=== PATIENT | male | born 1950 | race Caucasian/White ===

== ENCOUNTER 2017-08-06 09:09 | Emergency (ER) | payer MEDICARE, OTHER ==
[2017-08-06] MEDS ORDERED: MORPHINE SULFATE 4 MG INJ IV ONE ×2 (09:23→14:09)
[2017-08-06] MEDS ORDERED: Ativan 1 MG PO ONE (09:24)
--- NOTE | 2017-08-06 09:29 | ERPHSYRPT ---
- History of Present Illness Time Seen by Provider: 08/06/17 09:26 Source: patient Patient Subjective Stated Complaint: pain to lower back for a week after running equipment, he states is spasms off and on Triage Nursing Assessment: pt walked in. gaurding back, alertmresp easy, skin w/ d/p Physician History: mild to mod low and mid back pain positional ache for one week after chaining a tire, o/w no injury, no fever, no abdominal pain, ambulatory Allergies/Adverse Reactions: diclofenac [From Voltaren] Allergy (Verified 08/06/17 09:21) Hx Tetanus, Diphtheria Vaccination/Date Given: Yes Hx Influenza Vaccination/Date Given: No Hx Pneumococcal Vaccination/Date Given: No Immunizations Up to Date: Yes - Review of Systems Constitutional: No Fever Eyes: No Symptoms Ears, Nose, & Throat: No Symptoms Respiratory: No Symptoms Cardiac: No Symptoms Abdominal/Gastrointestinal: No Symptoms Genitourinary Symptoms: No Symptoms Musculoskeletal: Back Pain Skin: No Symptoms Neurological: No Symptoms - Past Medical History Pertinent Past Medical History: Yes Neurological History: No Pertinent History ENT History: No Pertinent History Cardiac History: No Pertinent History Respiratory History: Sleep Apnea Endocrine Medical History: No Pertinent History Musculoskeletal History: No Pertinent History GI Medical History: No Pertinent History History: No Pertinent History Psycho-Social History: No Pertinent History Male Reproductive Disorders: No Pertinent History - Past Surgical History Past Surgical History: Yes Neuro Surgical History: No Pertinent History Cardiac: No Pertinent History Respiratory: No Pertinent History Gastrointestinal: Hernia Repair Genitourinary: No Pertinent History Musculoskeletal: Orthopedic Surgery Male Surgical History: No Pertinent History Other Surgical History: LUNG SURG,CYST ON WRIST REMOVED, - Social History Smoking Status: Never smoker Exposure to second hand smoke: No Drug Use: none Patient Lives Alone: No - Nursing Vital Signs Nursing Vital Signs: Initial Vital Signs Temperature 97.1 F 08/06/17 09:14 Pulse Rate 78 08/06/17 09:14 Respiratory Rate 18 08/06/17 09:14 Blood Pressure 157/113 08/06/17 09:14 O2 Sat by Pulse Oximetry 100 08/06/17 09:14 Pain Scale Pain Intensity [Back] 10 Pain Intensity 0 - Physical Exam General Appearance: no apparent distress Eye Exam: eyes nml inspection Ears, Nose, Throat Exam: moist mucous membranes Neck Exam: normal inspection, non-tender, supple, full range of motion Respiratory Exam: normal breath sounds Cardiovascular Exam: regular rate/rhythm Gastrointestinal Exam: soft, No tenderness, No pulsatile mass, No rebound Back Exam: normal inspection, normal range of motion, other (tender paraspinal lumbar and thoracic), No vertebral tenderness Extremity Exam: normal inspection, pelvis stable, other (sen and pulses intact) Neurologic Exam: alert, oriented x 3, cooperative Skin Exam: normal color, warm, dry SpO2: 78 (O2sat RA 95%) Oxygen Delivery: Room Air - Course Nursing assessment & vital signs reviewed: Yes EKG Interpreted by Me: Other (nsr 55 no stemi) - CT Exams Lumbar Spine CT Interpretation: Discussed w/radiologist, Other (degen dis no fx) Abdomen/Pelvis CT Interpretation: Discussed w/radiologist, Other (no AAA) Ordered Tests: Active Orders 24 hr Category Date Time Status EKG-ER Only STAT Care 08/06/17 09:25 Active IV Insertion STAT Care 08/06/17 09:23 Active ABDOMEN AND PELVIS W/0 CONTRAS [CT] Stat Exams 08/06/17 12:39 Taken LUMBAR SPINE W/O [CT] Stat Exams 08/06/17 09:23 Taken THORACIC SPINE W/O CONTRAST [CT] Stat Exams 08/06/17 09:23 Taken CBC W DIFF Stat Lab 08/06/17 09:23 Completed CMP Stat Lab 08/06/17 09:45 Completed D-DIMER QUANTITATION Stat Lab 08/06/17 09:45 Completed TROPONIN Q3H Lab 08/06/17 09:45 Completed TROPONIN Q3H Lab 08/06/17 12:30 Completed TROPONIN Q3H Lab 08/06/17 15:30 Ordered TROPONIN Q3H Lab 08/06/17 18:30 Ordered TROPONIN Q3H Lab 08/06/17 21:30 Ordered UA W/RFX UR CULTURE Stat Lab 08/06/17 09:45 Completed Medication Summary Discontinued Medications Generic Name Dose Route Start Last Admin Trade Name Freq PRN Reason Stop Dose Admin Lorazepam 1 mg 08/06/17 09:24 08/06/17 09:31 Ativan 1 Mg PO 08/06/17 09:25 1 mg STAT ONE Administration Lorazepam Confirm 08/06/17 09:30 Ativan 1 Mg Administered 08/06/17 09:31 Dose 1 mg .ROUTE .STK-MED ONE Morphine Sulfate 4 mg 08/06/17 09:23 08/06/17 09:30 Morphine Sulfate 4 Mg Inj IV 08/06/17 09:24 4 mg STAT ONE Administration Morphine Sulfate Confirm 08/06/17 09:30 Morphine Sulfate 4 Mg Inj Administered 08/06/17 09:31 Dose 4 mg .ROUTE .STK-MED ONE Morphine Sulfate 4 mg 08/06/17 14:09 08/06/17 14:14 Morphine Sulfate 4 Mg Inj IV 08/06/17 14:10 4 mg STAT ONE Administration Morphine Sulfate Confirm 08/06/17 14:12 Morphine Sulfate 4 Mg Inj Administered 08/06/17 14:13 Dose 4 mg .ROUTE .STK-MED ONE Lab/Rad Data: Laboratory Result Diagrams 08/06/17 09:23 08/06/17 09:45 Laboratory Results 08/06/17 08/06/17 08/06/17 Range/Units 12:30 09:45 09:45 WBC (4.0-10.5) K/mm3 RBC (4.1-5.6) M/mm3 Hgb (12.5-18.0) gm/dl Hct (42-50) % MCV (78-100) fl MCH (26-32) pg MCHC (32-36) g/dl RDW (11.5-14.0) % Plt Count (150-450) K/mm3 MPV (6-9.5) fl Gran % (36.0-66.0) % Eos # (Auto) (0-0.5) Absolute Lymphs (auto) (1.0-4.6) Absolute Monos (auto) (0.0-1.3) Lymphocytes % (24.0-44.0) % Monocytes % (0.0-12.0) % Eosinophils % (0.00-5.0) % Basophils % (0.0-0.4) % Absolute Granulocytes (1.4-6.9) Basophils # (0-0.4) D-Dimer (215-500) ng/mL Sodium (137-145) mmol/L Potassium (3.5-5.1) mmol/L Chloride (98-107) mmol/L Carbon Dioxide (22-30) mmol/L Anion Gap (5-15) MEQ/L BUN (9-20) mg/dL Creatinine (0.66-1.25) mg/dL Estimated GFR ML/MIN Glucose (74-106) mg/dL Calcium (8.4-10.2) mg/dL Total Bilirubin (0.2-1.3) mg/dL AST (17-59) U/L ALT (0-50) U/L Alkaline Phosphatase (38-126) U/L Troponin I < 0.012 < 0.012 (0.000-0.034) ng/mL Serum Total Protein (6.3-8.2) g/dL Albumin (3.5-5.0) g/dL Ur Collection Type CLEAN CATCH Urine Color YELLOW (YELLOW) Urine Appearance CLEAR (CLEAR) Urine pH 5.0 (5-6) Ur Specific Eastern 1.015 (1.005-1.025) Urine Protein NEGATIVE (Negative) Urine Ketones NEGATIVE (NEGATIVE) Urine Blood NEGATIVE (0-5) Semaj/ul Urine Nitrite NEGATIVE (NEGATIVE) Urine Bilirubin NEGATIVE (NEGATIVE) Urine Urobilinogen NORMAL (0-1) mg/dL Ur Leukocyte Esterase NEGATIVE (NEGATIVE) Urine Culture Reflexed NO (NO) Urine Glucose 100 (NEGATIVE) mg/dL Specimen Received 08-06-17 0930 08/06/17 08/06/17 08/06/17 Range/Units 09:45 09:45 09:23 WBC 6.7 (4.0-10.5) K/mm3 RBC 5.01 (4.1-5.6) M/mm3 Hgb 14.2 (12.5-18.0) gm/dl Hct 43.1 (42-50) % MCV 86.0 (78-100) fl MCH 28.3 (26-32) pg MCHC 32.9 (32-36) g/dl RDW 14.7 H (11.5-14.0) % Plt Count 186 (150-450) K/mm3 MPV 10.4 H (6-9.5) fl Gran % 62.8 (36.0-66.0) % Eos # (Auto) 0.37 (0-0.5) Absolute Lymphs (auto) 1.51 (1.0-4.6) Absolute Monos (auto) 0.55 (0.0-1.3) Lymphocytes % 22.7 L (24.0-44.0) % Monocytes % 8.3 (0.0-12.0) % Eosinophils % 5.6 H (0.00-5.0) % Basophils % 0.6 (0.0-0.4) % Absolute Granulocytes 4.19 (1.4-6.9) Basophils # 0.04 (0-0.4) D-Dimer 426 (215-500) ng/mL Sodium 142 (137-145) mmol/L Potassium 4.6 (3.5-5.1) mmol/L Chloride 105 (98-107) mmol/L Carbon Dioxide 27 (22-30) mmol/L Anion Gap 14.5 (5-15) MEQ/L BUN 23 H (9-20) mg/dL Creatinine 0.99 (0.66-1.25) mg/dL Estimated GFR > 60.0 ML/MIN Glucose 120 H (74-106) mg/dL Calcium 9.9 (8.4-10.2) mg/dL Total Bilirubin 0.30 (0.2-1.3) mg/dL AST 25 (17-59) U/L ALT 23 (0-50) U/L Alkaline Phosphatase 84 (38-126) U/L Troponin I (0.000-0.034) ng/mL Serum Total Protein 9.0 H (6.3-8.2) g/dL Albumin 4.4 (3.5-5.0) g/dL Ur Collection Type Urine Color (YELLOW) Urine Appearance (CLEAR) Urine pH (5-6) Ur Specific Eastern (1.005-1.025) Urine Protein (Negative) Urine Ketones (NEGATIVE) Urine Blood (0-5) Semaj/ul Urine Nitrite (NEGATIVE) Urine Bilirubin (NEGATIVE) Urine Urobilinogen (0-1) mg/dL Ur Leukocyte Esterase (NEGATIVE) Urine Culture Reflexed (NO) Urine Glucose (NEGATIVE) mg/dL Specimen Received - Progress Progress: improved Counseled pt/family regarding: lab results, diagnosis, need for follow-up, rad results - Departure Time of Disposition: 14:53 Departure Disposition: Home Clinical Impression: Low back strain Qualifiers: Encounter type: initial encounter Qualified Code(s): S39.012A - Strain of muscle, fascia and tendon of lower back, initial encounter Hypertension Qualifiers: Hypertension type: essential hypertension Qualified Code(s): I10 - Essential ( primary) hypertension Condition: Stable Critical Care Time: No Referrals: CLAIRE HESS [Primary Care Provider] - Instructions: Low Back Pain (DC) Additional Instructions: ativan and norco and morphine warnings given, ice, norvasc, medrol, return if worse, see your doctor Prescriptions: Amlodipine Besylate 5 mg [Norvasc 5 mg] 5 mg PO DAILY 10 Days #10 tablet Hydrocodone/APAP 5/325 [Iroquois 5/325 mg] 1 each PO Q4-6HPRN PRN #10 tablet MDD 4 PRN Reason: Moderate Pain Lorazepam 1 mg [Ativan 1 MG] 1 mg PO STAT #10 tablet Methylprednisolone Packet [Medrol Dosepack] 0 mg PO UD #1 packet
[2017-08-06] MEDS ORDERED: Ativan 1 MG ONE (09:30)
[2017-08-06] MEDS ORDERED: MORPHINE SULFATE 4 MG INJ ONE ×2 (09:30→14:12)
[2017-08-06 09:46] LABS: BASOPHIL % 0.6 % (0.0-0.4); Basophil (Absolute #) 0.04 (0-0.4); Eosinophil % 5.6 % (0.00-5.0); Eosinophil (Absolute #) 0.37 (0-0.5); Granulocyte Absolute (ANC) 4.19 (1.4-6.9); Granulocytes % 62.8 % (36.0-66.0); Hematocrit 43.1 % (42-50); Hemoglobin 14.2 gm/dl (12.5-18.0); Lymphocyte (Absolute #) 1.51 (1.0-4.6); Lymphocytes % 22.7 % (24.0-44.0); Mean Corpuscular Hemoglobin 28.3 pg (26-32); Mean Corpuscular Hgb Concent. 32.9 g/dl (32-36); Mean Platelet Volume 10.4 fl (6-9.5); Monocyte (Absolute #) 0.55 (0.0-1.3); Monocytes % 8.3 % (0.0-12.0); Platelet Count 186 K/mm3 (150-450); Red Blood Count 5.01 M/mm3 (4.1-5.6); Red Cell Distribution Width 14.7 % (11.5-14.0); White Blood Count 6.7 K/mm3 (4.0-10.5)
[2017-08-06 10:04] LABS: ALBUMIN 4.4 g/dL (3.5-5.0); ALKALINE PHOSPHATASE 84 U/L (38-126); ANION GAP 14.5 MEQ/L (5-15); BLOOD UREA NITROGEN 23 mg/dL (9-20); CHLORIDE 105 mmol/L (98-107); Calcium 9.9 mg/dL (8.4-10.2); Carbon Dioxide 27 mmol/L (22-30); Creatinine 1 0.99 mg/dL (0.66-1.25); Glucose 120 mg/dL (74-106); Potassium 4.6 mmol/L (3.5-5.1); SGOT/AST 25 U/L (17-59); SGPT/ALT 23 U/L (0-50); SODIUM 142 mmol/L (137-145)
[2017-08-06 10:12] LABS: Appearance CLEAR (CLEAR); Bilirubin NEGATIVE (NEGATIVE); Blood NEGATIVE Ery/ul (0-5); Glucose 100 mg/dL (NEGATIVE); Ketones NEGATIVE (NEGATIVE); Leukocyte Esterase NEGATIVE (NEGATIVE); Nitrite NEGATIVE (NEGATIVE); Protein,Urine Dip NEGATIVE (Negative); Specific Gravity 1.015 (1.005-1.025); Urobilinogen NORMAL mg/dL (0-1)
[2017-08-06 15:13] VITALS: BP 140/79; PULSE 60; O2SAT 97
--- NOTE | 2017-08-06 21:15 | XRAY ---
Indication: AAA. Multiple contiguous axial images obtained through the abdomen and pelvis without contrast as ordered. Comparison: None Lung bases demonstrates mild bilateral atelectasis/scarring. No infiltrate or effusion. Heart is not enlarged. Minimal aortoiliac calcifications without AAA. Noncontrasted stomach and bowel loops appear nonobstructed. There is mild diffuse scattered colonic fecal debris throughout. Normal appendix. Scattered descending/sigmoid diverticulosis. 7 mm gallstone. Scattered hepatic/splenic calcified granulomas. Spleen is enlarged measuring 14.7 cm in greatest axial dimension. 2.2 cm left upper pole exophytic cyst. Enlarged prostate gland impresses on the base of the bladder. Remaining pancreas, adrenal glands, right kidney, both ureters, and bladder appear unremarkable for noncontrast exam. Osseous structures intact with moderate multilevel degenerative spondylosis. Impression: 1. Minimal aortoiliac calcifications. Negative AAA. 2. Fecal stasis without obstruction. Colonic diverticulosis without diverticulitis. 3. Subcentimeter gallstone. 4. Left renal cyst. 5. Splenomegaly, enlarged prostate gland, and evidence for old granulomatous disease. Comment: Preliminary interpretation was made by [facility]. No critical discrepancy. CTDI 23.68
--- NOTE | 2017-08-06 21:19 | XRAY ---
Indication: Back pain. Muscle spasms. Multiple contiguous axial images obtained through the thoracic spine. Sagittal and coronal reformatted images obtained. Comparison: None Multilevel flowing osteophytes throughout the spine consistent with diffuse idiopathic skeletal hyperostosis (DISH). No acute fracture, suspicious bone lesions, or spinal canal stenosis. Sagittal and coronal reformatted images demonstrates normal thoracic alignment/kyphosis. Visualized noncontrasted soft tissues demonstrates left hilar calcified nodes. CT abdomen/pelvis and CT lumbar spine reported separately. Impression: 1. Negative acute fracture/subluxation. 2. Multilevel flowing osteophytes favoring DISH. 3. Evidence for old granulomatous disease. Comment: Preliminary interpretation was made by [facility]. No critical discrepancy. CTDI 115.89
--- NOTE | 2017-08-09 10:07 | XRAY ---
Indication: Low back pain 1 week. Muscle spasms. Multiple contiguous axial images obtained through the lumbar spine. Sagittal and coronal reformatted images obtained. Comparison: September 22, 2012. There remains L1-S1 moderate annular disc osteophyte complex, bilateral degenerative facet arthropathy, and bilateral foraminal narrowing/stenosis progressively worsened. Greatest extent at L4-L5 level. New L1-L4 degenerative vacuum disc phenomena. No disc herniation. Sagittal and coronal reformatted images again demonstrates normal lumbar alignment with mild multilevel disc space narrowing again greatest at the L5-S1 level. No acute compression fracture or subluxation. Visualized noncontrasted soft tissues demonstrates new 7 mm gallstone. Impression: 1. Progressive worsening multilevel degenerative spondylosis again greatest at the L4-L5 level. 2. New subcentimeter gallstone. Comment: Preliminary interpretation was made by [facility]. No critical discrepancy. CTDI 147.09
== END 2017-08-06 15:13 | disposition home or self-care (01) ==
LOC: ED 09:09
DX: S39.012A Strain of muscle, fascia and tendon of lower back, initial encounter (principal); M54.5 Low back pain; I10 Essential (primary) hypertension
CPT/HCPCS: 36000; 36415; 72128; 72131; 74176; 80053; 81002; 84484; 85025; 85379; 93005; 96374; 96376; 99284; J2270; A9270-GY

== ENCOUNTER 2018-04-01 11:09 | Emergency (ER) | payer MEDICARE, OTHER ==
[2018-04-01] MEDS ORDERED: MORPHINE SULFATE 4 MG INJ IV ONE (11:25)
[2018-04-01] MEDS ORDERED: Zofran 4 MG/2 ML VIAL IV ONE (11:25)
--- NOTE | 2018-04-01 11:31 | ERPHSYRPT ---
- History of Present Illness Time Seen by Provider: 04/01/18 11:27 Source: patient Exam Limitations: no limitations Physician History: 67-year-old white male arrives with complaint of pain and swelling in his right lower extremity symptoms for one week. Patient states she's been having the swelling for one week he states he has been having pain with walking in the area. Past medical history includes sleep apnea. Past surgical history is remarkable for knee medical meniscus repair in the past patient is not sure what side, hernia repair, cyst on his wrist removed. Social history occasional alcohol patient also chews tobacco. Method of Injury: unknown Occurred: last week Quality: constant Severity of Pain-Max: moderate Severity of Pain-Current: moderate Lower Extremities Pain: leg: right Modifying Factors: Improves With: other (walking) Associated Symptoms: other (pain with weightbearing) Allergies/Adverse Reactions: diclofenac [From Voltaren] Allergy (Verified 04/01/18 11:31) Home Medications: No Reportable Medications [No Reported Medications] 04/01/18 [History] Hx Tetanus, Diphtheria Vaccination/Date Given: Yes Hx Influenza Vaccination/Date Given: No Hx Pneumococcal Vaccination/Date Given: No - Review of Systems Constitutional: No Fever, No Chills Eyes: No Symptoms Ears, Nose, & Throat: No Symptoms Respiratory: No Cough, No Dyspnea Cardiac: No Chest Pain, No Edema, No Syncope Abdominal/Gastrointestinal: No Abdominal Pain, No Nausea, No Vomiting, No Diarrhea Genitourinary Symptoms: No Dysuria Musculoskeletal: Other (Right leg pain and swelling) Skin: No Rash Neurological: No Dizziness, No Focal Weakness, No Sensory Changes Psychological: No Symptoms Endocrine: No Symptoms All Other Systems: Reviewed and Negative - Past Medical History Pertinent Past Medical History: Yes Neurological History: No Pertinent History ENT History: No Pertinent History Cardiac History: No Pertinent History Respiratory History: Sleep Apnea Endocrine Medical History: No Pertinent History Musculoskeletal History: No Pertinent History GI Medical History: No Pertinent History History: No Pertinent History Psycho-Social History: No Pertinent History Male Reproductive Disorders: No Pertinent History - Past Surgical History Past Surgical History: Yes Neuro Surgical History: No Pertinent History Cardiac: No Pertinent History Respiratory: No Pertinent History Gastrointestinal: Hernia Repair Genitourinary: No Pertinent History Musculoskeletal: Orthopedic Surgery Male Surgical History: No Pertinent History Other Surgical History: LUNG SURG,CYST ON WRIST REMOVED, - Social History Smoking Status: Never smoker Exposure to second hand smoke: No Drug Use: none Patient Lives Alone: No - Nursing Vital Signs Nursing Vital Signs: Initial Vital Signs Temperature 97.5 F 04/01/18 11:20 Pulse Rate 93 H 04/01/18 11:20 Blood Pressure 158/78 04/01/18 11:20 O2 Sat by Pulse Oximetry 97 04/01/18 11:20 Pain Scale Pain Intensity 4 - Physical Exam General Appearance: mild distress Eyes, Ears, Nose, Throat Exam: moist mucous membranes Neck Exam: non-tender, supple Cardiovascular/Respiratory Exam: chest non-tender, normal breath sounds, regular rate/rhythm, no respiratory distress Gastrointestinal/Abdominal Exam: non-tender, guarding Back Exam: normal inspection, No vertebral tenderness Hips Exam: bilateral: non-tender, normal inspection, normal range of motion, no evidence of injury Legs Exam: right leg: other (Swelling right leg at calf tender with palpation right calf), left leg: non-tender, normal inspection, bilateral leg: normal range of motion Knees Exam: bilateral knee: non-tender, normal inspection, normal range of motion, no evidence of injury Ankle Exam: bilateral ankle: non-tender, normal inspection, normal range of motion, no evidence of injury Foot Exam: bilateral foot: non-tender, normal inspection, normal range of motion , no evidence of injury Neuro/Tendon Exam: normal sensation, normal motor functions Mental Status Exam: alert, oriented x 3, cooperative Skin Exam: normal color, warm, dry SpO2 Interpretation: normal - Course Nursing assessment & vital signs reviewed: Yes - Radiology Ultrasound Exam Venous Lower Extremity Ultrasound: Other (venous Doppler lower exremity, right. per glass technologist: Impression positive for DVT femoral vein through with the PV reviewed and vein to popliteal vein, spongy, hyperechoic appearance, potentially mobile and proximal femoral vein) Ordered Tests: Active Orders 24 hr Category Date Time Status IV Insertion STAT Care 04/01/18 11:24 Active VENOUS UNILAT/LIMITED EXTREMIT [US] Stat Exams 04/01/18 13:07 Taken CBC W DIFF Stat Lab 04/01/18 11:35 Completed CMP Stat Lab 04/01/18 11:35 Completed D-DIMER QUANTITATION Stat Lab 04/01/18 11:35 Completed Manual Differential NC Stat Lab 04/01/18 11:35 Completed PROTIME WITH INR Stat Lab 04/01/18 11:35 Completed PTT Stat Lab 04/01/18 11:35 Completed Medication Summary Generic Name Dose Route Start Last Admin Trade Name Hilario PRN Reason Stop Dose Admin Enoxaparin Sodium 130 mg 04/01/18 13:37 Enoxaparin Sodium 1 mg/kg (130 mg) 04/01/18 13:38 SQ STAT ONE Discontinued Medications Generic Name Dose Route Start Last Admin Trade Name Hilario PRN Reason Stop Dose Admin Morphine Sulfate 4 mg 04/01/18 11:25 04/01/18 11:43 Morphine Sulfate 4 Mg Inj IV 04/01/18 11:26 4 mg STAT ONE Administration Morphine Sulfate Confirm 04/01/18 11:42 Morphine Sulfate 4 Mg Inj Administered 04/01/18 11:43 Dose 4 mg .ROUTE .STK-MED ONE Ondansetron HCl 4 mg 04/01/18 11:25 04/01/18 11:43 Zofran 4 Mg/2 Ml Vial IV 04/01/18 11:26 4 mg STAT ONE Administration Ondansetron HCl Confirm 04/01/18 11:41 Zofran 4 Mg/2 Ml Vial Administered 04/01/18 11:42 Dose 4 mg .ROUTE .STK-MED ONE Lab/Rad Data: Laboratory Result Diagrams 04/01/18 11:35 04/01/18 11:35 Laboratory Results 04/01/18 04/01/18 04/01/18 Range/Units 11:35 11:35 11:35 WBC 9.0 (4.0-10.5) K/mm3 RBC 4.29 (4.1-5.6) M/mm3 Hgb 11.7 L (12.5-18.0) gm/dl Hct 35.6 L (42-50) % MCV 83.0 (78-100) fl MCH 27.2 (26-32) pg MCHC 32.9 (32-36) g/dl RDW 14.3 H (11.5-14.0) % Plt Count 176 (150-450) K/mm3 MPV 9.8 H (6-9.5) fl Segmented Neutrophils 72 H (36.-66.) % Band Neutrophils 1 (0.0-2.0) % Lymphocytes (Manual) 14 L (24-44) % Monocytes (Manual) 9 (0.0-12.0) % Eosinophils (Manual) 4 H (0.00-3.0) % Platelet Estimate NORMAL (NORMAL) RBC Morphology NORMAL PT 14.3 H (8.83-12.87) SECONDS INR 1.23 (0.8-3.0) APTT 27.8 (24.1-36.1) SECONDS D-Dimer 4842 H* (215-500) ng/mL Sodium 136 L (137-145) mmol/L Potassium 4.3 (3.5-5.1) mmol/L Chloride 101 (98-107) mmol/L Carbon Dioxide 26 (22-30) mmol/L Anion Gap 13.8 (5-15) MEQ/L BUN 19 (9-20) mg/dL Creatinine 1.00 (0.66-1.25) mg/dL Estimated GFR > 60.0 ML/MIN Glucose 145 H (74-106) mg/dL Calcium 9.5 (8.4-10.2) mg/dL Total Bilirubin 0.60 (0.2-1.3) mg/dL AST 28 (17-59) U/L ALT 21 (0-50) U/L Alkaline Phosphatase 93 (38-126) U/L Serum Total Protein 9.7 H (6.3-8.2) g/dL Albumin 4.0 (3.5-5.0) g/dL - Progress Progress: improved Progress Note: 04/01/18 13:38 67-year-old white male with complaint of right leg pain and swelling for one week. Patient with swelling of the right calf tenderness in the right calf d-dimer is greater than 4000. Patient's venous Doppler right lower extremity positive for DVT extending from the femoral vein through the posterior tibial vein this appears to be spongy, hyperechoic in appearance potentially multiple appears to be fluttering in the proximal femoral vein. I've discussed the case with Dr. Greene at [facility] Will go ahead and give patient Lovenox 1 mg/kg subcutaneously. Will transfer patient to [facility]. - Departure Time of Disposition: 13:40 Departure Disposition: Transfer ([facility], Dr. Greene) Clinical Impression: Right leg pain Right leg DVT Qualifiers: Affected thrombotic vein of extremity: femoral Chronicity: acute Qualified Code (s): I82.411 - Acute embolism and thrombosis of right femoral vein Condition: Fair Critical Care Time: No Referrals: ARLIN GREENE [Primary Care Provider] -
[2018-04-01] MEDS ORDERED: Zofran 4 MG/2 ML VIAL ONE (11:41)
[2018-04-01] MEDS ORDERED: MORPHINE SULFATE 4 MG INJ ONE (11:42)
[2018-04-01 11:53] LABS: Hematocrit 35.6 % (42-50); Hemoglobin 11.7 gm/dl (12.5-18.0); Mean Corpuscular Hgb Concent. 32.9 g/dl (32-36); Mean Platelet Volume 9.8 fl (6-9.5); Platelet Count 176 K/mm3 (150-450); Red Blood Count 4.29 M/mm3 (4.1-5.6); Red Cell Distribution Width 14.3 % (11.5-14.0)
[2018-04-01 11:55] LABS: Mean Corpuscular Hemoglobin 27.2 pg (26-32)
[2018-04-01 12:08] LABS: INR 1.23 (0.8-3.0); PROTIME 14.3 SECONDS (8.83-12.87)
[2018-04-01 12:10] LABS: PTT 27.8 SECONDS (24.1-36.1)
[2018-04-01 12:22] LABS: ALKALINE PHOSPHATASE 93 U/L (38-126); ANION GAP 13.8 MEQ/L (5-15); BLOOD UREA NITROGEN 19 mg/dL (9-20); CHLORIDE 101 mmol/L (98-107); Calcium 9.5 mg/dL (8.4-10.2); Carbon Dioxide 26 mmol/L (22-30); Glucose 145 mg/dL (74-106); Potassium 4.3 mmol/L (3.5-5.1); SGOT/AST 28 U/L (17-59); SGPT/ALT 21 U/L (0-50); SODIUM 136 mmol/L (137-145); Total Protein 9.7 g/dL (6.3-8.2)
[2018-04-01 13:03] LABS: BAND 1 % (0.0-2.0); Eosinophil 4 % (0.00-3.0); Lymphocytes 14 % (24-44); Monocyte 9 % (0.0-12.0); Neutrophils 72 % (36.-66.); Platelet Estimate NORMAL (NORMAL); Total Cells Counted 100
[2018-04-01] MEDS ORDERED: ENOXAPARIN SODIUM SQ ONE ×2 (13:37→14:12)
[2018-04-01 14:45] VITALS: BP 138/76; PULSE 83; O2SAT 95
--- NOTE | 2018-04-01 19:19 | XRAY ---
Indication: Pain and swelling. Two-dimensional sonogram and color Doppler imaging of the major venous vessels of the right leg was performed. Comparison: None There is occluding thrombus in the deep femoral and popliteal veins with near occluding thrombus throughout the femoral and posterior tibial veins. No thrombus in the common femoral and greater saphenous veins. Impression: Occluding and nonoccluding DVT throughout the right leg as detailed. Comment: Preliminary report was given.
== END 2018-04-01 14:56 | disposition short-term general hospital (02) ==
LOC: ED 11:09
DX: M79.604 Pain in right leg (principal); I82.411 Acute embolism and thrombosis of right femoral vein; M79.89 Other specified soft tissue disorders; G47.30 Sleep apnea, unspecified
CPT/HCPCS: 36000; 36415; 80053; 85025; 85379; 85610; 85730; 93971; 96372; 96374; 96375; 99285; J1650; J2270; J2405

== ENCOUNTER 2018-08-21 16:45 | Emergency (ER) | payer MEDICARE, OTHER ==
[2018-08-21] MEDS ORDERED: Sodium Chloride 0.9% 1000 ML 1,000 ML IV STA (17:02)
[2018-08-21] MEDS ORDERED: PROVENTIL 2.5 MG/3 ML NEB IH ONE ×2 (17:09→17:13)
[2018-08-21] MEDS ORDERED: Sodium Chloride 0.9% 1000 ML 1,000 ML ONE ×4 (17:12→21:18)
[2018-08-21] MEDS ORDERED: Robitussin AC Syrup Unit Dose Cup PO ONE (17:14)
[2018-08-21] MEDS ORDERED: PROVENTIL Solution 2.5 MG/0.5 ML IH ONE ×2 (17:17→17:23)
[2018-08-21] MEDS ORDERED: Sodium Chloride 3 ML UD NEBULES IH ONE ×2 (17:17→17:29)
[2018-08-21 17:33] LABS: BASOPHIL % 0.3 % (0.0-0.4); Basophil (Absolute #) 0.04 (0-0.4); Eosinophil % 4.8 % (0.00-5.0); Eosinophil (Absolute #) 0.57 (0-0.5); Granulocyte Absolute (ANC) 9.11 (1.4-6.9); Granulocytes % 77.5 % (36.0-66.0); Hematocrit 42.9 % (42-50); Hemoglobin 13.9 gm/dl (12.5-18.0); Lymphocyte (Absolute #) 1.41 (1.0-4.6); Mean Corpuscular Hemoglobin 27.5 pg (26-32); Mean Corpuscular Hgb Concent. 32.4 g/dl (32-36); Mean Platelet Volume 9.6 fl (6-9.5); Monocyte (Absolute #) 0.63 (0.0-1.3); Monocytes % 5.4 % (0.0-12.0); Platelet Count 229 K/mm3 (150-450); Red Blood Count 5.05 M/mm3 (4.1-5.6); Red Cell Distribution Width 16.4 % (11.5-14.0); White Blood Count 11.8 K/mm3 (4.0-10.5)
[2018-08-21] MEDS ORDERED: Robitussin AC Syrup Unit Dose Cup ONE (17:33)
[2018-08-21 17:42] LABS: Lactic Acid 2.3 (0.4-2.0)
[2018-08-21 17:43] LABS: VBG BASE EXCESS -2.5 (-2.0-2.0); VBG CARBOXYHEMOGLOBIN 3.8 % T HGB (0.0-6.9); VBG HCO3- 22.5 meq/L (22-28); VBG HEMOGLOBIN 13.5; VBG O2 SATURATION 91.7 (95-100); VBG pH 7.37 (7.32-7.42)
[2018-08-21 17:47] LABS: INR 1.45 (0.8-3.0); PROTIME 16.5 SECONDS (8.83-12.87)
[2018-08-21 17:48] LABS: ALBUMIN 4.3 g/dL (3.5-5.0); ALKALINE PHOSPHATASE 145 U/L (38-126); ANION GAP 15.8 MEQ/L (5-15); BLOOD UREA NITROGEN 18 mg/dL (9-20); CHLORIDE 103 mmol/L (98-107); Carbon Dioxide 25 mmol/L (22-30); Creatinine 1 1.04 mg/dL (0.66-1.25); Glucose 130 mg/dL (74-106); Potassium 4.2 mmol/L (3.5-5.1); SGOT/AST 32 U/L (17-59); SGPT/ALT 20 U/L (0-50); SODIUM 139 mmol/L (137-145); Total Protein 9.7 g/dL (6.3-8.2)
[2018-08-21 17:49] LABS: PTT 46.8 SECONDS (24.1-36.1)
[2018-08-21] MEDS ORDERED: ROCEPHIN 2 Gm-D5w 50ML BAG** 2 G/50 ML IVPB IV STA (18:03)
[2018-08-21] MEDS ORDERED: Zithromax 500 MG/ 250 ML NaCl Premix 500 MG/250 ML IVPB IV STA (18:04)
[2018-08-21] MEDS ORDERED: ROCEPHIN 2 Gm-D5w 50ML BAG** 2 G/50 ML IVPB IV ONE (18:18)
[2018-08-21] MEDS ORDERED: Zithromax 500 MG/ 250 ML NaCl Premix 500 MG/250 ML IVPB IV ONE (18:18)
[2018-08-21] MEDS: Sodium Chloride 0.9% 1000 ML 1,000 ML IV SCH ×4 (18:31→21:45)
[2018-08-21 19:10] LABS: INFLUENZA A NEGATIVE (NEGATIVE); INFLUENZA B NEGATIVE (NEGATIVE); RESPIRATORY SYNCTIAL VIRUS NEGATIVE (Negative)
[2018-08-21] MEDS ORDERED: Tessalon Perles 100 MG PO STA (19:55)
--- NOTE | 2018-08-21 20:32 | ERPHSYRPT ---
- History of Present Illness Time Seen by Provider: 08/21/18 17:11 Source: patient Exam Limitations: clinical condition Patient Subjective Stated Complaint: pt here for increase sob for a couple of days, with cough, productive yellow sputum,. was seen at drs office today and was given a steriod and a antibotic which he has taken Triage Nursing Assessment: arrived per ambulance, alert, resp labored,, cough, chest diminished, no fever, Physician History: PATIENT WITH A HISTORY OF PULMONARY EMBOLISM, HAS BEEN TREATED FOR RECURRENT BRONCHITIS X 2 MONTHS TREATED WITH 3 SEPARATE COURSES OF ANTIBIOTICS. EVALUATED BY PRIMARY CARE PROVIDER TODAY AND PLACED ON ANTIBITICS ZITHROMAX AND MEDROL DOSE MADINA. PATIENT CALLED EMS DUE ONSET OF SHORTNESS OF BREATHE AND A PRODUCTIVE COUGH CLEAR SPUTUM. DENIES FEVER OR CHILLS. Timing/Duration: yesterday Activities at Onset: activity Severity of Dyspnea-Max: moderate Severity of Dyspnea-Current: moderate Possible Cause: occasional episodes Modifying Factors: Improves With: coughing Associated Symptoms: cough International travel in last 2 weeks: No Allergies/Adverse Reactions: diclofenac [From [facility]] Allergy (Verified 08/21/18 16:54) Home Medications: Albuterol Common Canister [Proventil Common Canister] 1 puff DAILY [History] Azithromycin [Zithromax] 1 tab DAILY 08/21/18 [History] Rivaroxaban [Xarelto] 2.5 mg DAILY 08/21/18 [History] Tiotropium [place] [Spiriva Respimat] 1 puff DAILY 08/21/18 [History] methylPREDNISolone [Methylprednisolone] 1 tab DAILY 08/21/18 [History] Hx Tetanus, Diphtheria Vaccination/Date Given: Yes Hx Influenza Vaccination/Date Given: No Hx Pneumococcal Vaccination/Date Given: No Immunizations Up to Date: Yes - Review of Systems Constitutional: No Fever, No Chills Eyes: No Symptoms Ears, Nose, & Throat: No Symptoms Respiratory: Cough, Dyspnea Cardiac: No Symptoms, No Chest Pain, No Edema, No Syncope Abdominal/Gastrointestinal: No Symptoms, No Abdominal Pain, No Nausea, No Vomiting, No Diarrhea Genitourinary Symptoms: No Symptoms, No Dysuria Musculoskeletal: No Symptoms, No Back Pain, No Neck Pain Skin: No Symptoms, No Rash Neurological: No Dizziness, No Focal Weakness, No Sensory Changes Psychological: No Symptoms Endocrine: No Symptoms All Other Systems: Reviewed and Negative - Past Medical History Pertinent Past Medical History: Yes Neurological History: No Pertinent History ENT History: No Pertinent History Cardiac History: No Pertinent History Respiratory History: Sleep Apnea Endocrine Medical History: No Pertinent History Musculoskeletal History: No Pertinent History GI Medical History: No Pertinent History History: No Pertinent History Psycho-Social History: No Pertinent History Male Reproductive Disorders: No Pertinent History Other Medical History: dvt left leg in 03/2018 - Past Surgical History Past Surgical History: Yes Neuro Surgical History: No Pertinent History Cardiac: No Pertinent History Respiratory: No Pertinent History Gastrointestinal: Hernia Repair Genitourinary: No Pertinent History Musculoskeletal: Orthopedic Surgery Male Surgical History: No Pertinent History Other Surgical History: LUNG SURG,CYST ON WRIST REMOVED, - Social History Smoking Status: Never smoker Exposure to second hand smoke: No Drug Use: none Patient Lives Alone: No - Nursing Vital Signs Nursing Vital Signs: Initial Vital Signs Temperature 97.2 F 08/21/18 16:45 Pulse Rate 113 H 08/21/18 16:45 Respiratory Rate 28 H 08/21/18 16:45 Blood Pressure 124/62 08/21/18 16:45 O2 Sat by Pulse Oximetry 98 08/21/18 16:45 Pain Scale Pain Intensity 3 - Physical Exam General Appearance: moderate distress Eye Exam: PERRL/EOMI Ears, Nose, Throat Exam: hearing grossly normal Neck Exam: normal inspection Respiratory Exam: diminished breath sounds, prolonged expirations, rhonchi, wheezing Cardiovascular/Chest Exam: normal heart sounds, tachycardia Extremity Exam: non-tender, normal range of motion Peripheral Pulses Exam: carotid (R): 2+, carotid (L): 2+, femoral (R): 2+, femoral (L): 2+, dorsalis-pedis (R): 2+, dorsalis-pedis (L): 2+ Neurologic Exam: alert, oriented x 3 Skin Exam: normal color, warm SpO2 Interpretation: normal SpO2: 97 O2 Delivery: Room Air - Course EKG Interpreted by Me: RATE, Sinus Rhythm, Sinus Zay, NORMAL AXIS - CT Exams Chest CT Interpretation: Discussed w/radiologist (NO PULMONARY EMBOLISM, SCATTERED FIBROSIS, PROMINENT AXILLA NODES) Ordered Tests: Active Orders 24 hr Category Date Time Status Museum Host/Hostess STAT Care 08/21/18 17:05 Active EKG-ER Only STAT Care 08/21/18 17:02 Active IV Insertion STAT Care 08/21/18 17:02 Active Oxygen-ED Only Nasal Cannula 2 lpm Care 08/21/18 17:02 Active CHEST WITH CONTRAST [CT] Stat Exams 08/21/18 18:19 Taken BLOOD CULTURE Stat Lab 08/21/18 17:28 Received CBC W DIFF Stat Lab 08/21/18 17:20 Completed CMP Stat Lab 08/21/18 17:20 Completed CULTURE,URINE Stat Lab 08/21/18 17:02 Uncollected Lactic Acid Stat Lab 08/21/18 17:36 Completed Lactic Acid Stat Lab 08/21/18 20:23 Ordered Lactic Acid Stat Lab 08/21/18 20:30 Results PROTIME WITH INR Stat Lab 08/21/18 17:20 Completed PTT Stat Lab 08/21/18 17:20 Completed Urinalysis with Microscopy Stat Lab 08/21/18 Uncollected VENOUS BLOOD GAS Stat Lab 08/21/18 17:36 Completed Peak Expiratory Flow Rate ONCE RT 08/21/18 17:31 Active Respiratory Therapy Assessment DAILY RT 08/21/18 17:30 Active Medication Summary Generic Name Dose Route Start Last Admin Trade Name Freq PRN Reason Stop Dose Admin Sodium Chloride 1,000 mls @ 999 mls/hr 08/21/18 17:15 08/21/18 20:15 Sodium Chloride 0.9% 1000 Ml IV 08/21/18 21:15 999 mls/hr .Q1H1M SIERRA Administration Discontinued Medications Generic Name Dose Route Start Last Admin Trade Name Freq PRN Reason Stop Dose Admin Albuterol Sulfate 10 mg 08/21/18 17:09 Proventil 2.5 Mg/3 Ml Neb IH 08/21/18 17:10 STAT ONE Albuterol Sulfate Confirm 08/21/18 17:13 Proventil 2.5 Mg/3 Ml Neb Administered 08/21/18 17:14 Dose 2.5 mg IH .STK-MED ONE Albuterol Sulfate Confirm 08/21/18 17:17 Proventil Solution 2.5 Mg/0.5 Ml Administered 08/21/18 17:18 Dose 10 mg IH .STK-MED ONE Albuterol Sulfate 10 mg 08/21/18 17:23 08/21/18 17:28 Proventil Solution 2.5 Mg/0.5 Ml IH 08/21/18 17:24 10 mg STAT ONE Administration Benzonatate 100 mg 08/21/18 19:55 08/21/18 20:28 Tessalon Perles 100 Mg PO 08/21/18 19:56 100 mg STAT STA Administration Guaifenesin/Codeine Phosphate 10 ml 08/21/18 17:14 08/21/18 17:34 Robitussin Ac Syrup Unit Dose Cup PO 08/21/18 17:15 10 ml STAT ONE Administration Guaifenesin/Codeine Phosphate Confirm 08/21/18 17:33 Robitussin Ac Syrup Unit Dose Cup Administered 08/21/18 17:34 Dose 10 ml .ROUTE .STK-MED ONE Sodium Chloride 1,000 mls @ 999 mls/hr 08/21/18 17:02 08/21/18 18:17 Sodium Chloride 0.9% 1000 Ml IV 08/21/18 18:02 Infused .Q1H1M STA Infusion Ceftriaxone Sodium/Dextrose 2 g in 50 mls @ 100 mls/hr 08/21/18 18:03 18:30 Rocephin 2 Gm-D5w 50ml Bag IV 08/21/18 18:32 100 mls/hr STAT STA 100 mls/hr Administration Azithromycin 500 mg in 250 mls @ 250 mls/hr 08/21/18 18:04 08/21/18 19:09 Zithromax 500 Mg/ 250 Ml Nacl Premix IV 08/21/18 19:03 250 ml/hr STAT STA 250 mls/hr Administration Azithromycin Confirm 08/21/18 18:18 Zithromax 500 Mg/ 250 Ml Nacl Premix Administered 08/21/18 18:19 Dose 500 mg in 250 mls @ ud IV .STK-MED ONE Ceftriaxone Sodium/Dextrose Confirm 08/21/18 18:18 Rocephin 2 Gm-D5w 50ml Bag Administered 08/21/18 18:19 Dose 2 g in 50 mls @ ud IV .STK-MED ONE Sodium Chloride Confirm 08/21/18 17:17 Sodium Chloride 3 Ml Ud Nebules Administered 08/21/18 17:18 Dose 9 ml IH .STK-MED ONE Sodium Chloride 7 ml 08/21/18 17:29 08/21/18 17:28 Sodium Chloride 3 Ml Ud Nebules IH 08/21/18 17:30 7 ml STAT ONE Administration Lab/Rad Data: Laboratory Result Diagrams 08/21/18 17:20 08/21/18 17:20 Laboratory Results 08/21/18 08/21/18 08/21/18 Range/Units 20:30 18:30 17:36 WBC (4.0-10.5) K/mm3 RBC (4.1-5.6) M/mm3 Hgb (12.5-18.0) gm/dl Hct (42-50) % MCV (78-100) fl MCH (26-32) pg MCHC (32-36) g/dl RDW (11.5-14.0) % Plt Count (150-450) K/mm3 MPV (6-9.5) fl Gran % (36.0-66.0) % Eos # (Auto) (0-0.5) Absolute Lymphs (auto) (1.0-4.6) Absolute Monos (auto) (0.0-1.3) Lymphocytes % (24.0-44.0) % Monocytes % (0.0-12.0) % Eosinophils % (0.00-5.0) % Basophils % (0.0-0.4) % Absolute Granulocytes (1.4-6.9) Basophils # (0-0.4) PT (8.83-12.87) SECONDS INR (0.8-3.0) APTT (24.1-36.1) SECONDS pO2/FiO2 Ratio 32.0 % VBG pH 7.37 (7.32-7.42) VBG pCO2 at Pat Temp 39 L (42-55) mm/Hg VBG pO2 at Pat Temp 52 H (25-40) mm/Hg VBG HCO3 22.5 (22-28) meq/L VBG O2 Sat (Zachery) 91.7 L (95-100) VBG Base Excess -2.5 L (-2.0-2.0) VBG Hemoglobin 13.5 VBG Carboxyhemoglobin 3.8 (0.0-6.9) % T HGB POC Potassium 4.0 (3.5-5.1) Sodium (137-145) mmol/L Potassium (3.5-5.1) mmol/L Chloride (98-107) mmol/L Carbon Dioxide (22-30) mmol/L Anion Gap (5-15) MEQ/L BUN (9-20) mg/dL Creatinine (0.66-1.25) mg/dL Estimated GFR ML/MIN Glucose (74-106) mg/dL Lactic Acid 3.7 H (0.4-2.0) Calcium (8.4-10.2) mg/dL Total Bilirubin (0.2-1.3) mg/dL AST (17-59) U/L ALT (0-50) U/L Alkaline Phosphatase (38-126) U/L Serum Total Protein (6.3-8.2) g/dL Albumin (3.5-5.0) g/dL Influenza Type A Ag NEGATIVE (NEGATIVE) Influenza Type B Ag NEGATIVE (NEGATIVE) RSV (PCR) NEGATIVE (Negative) 08/21/18 08/21/18 08/21/18 Range/Units 17:36 17:20 17:20 WBC (4.0-10.5) K/mm3 RBC (4.1-5.6) M/mm3 Hgb (12.5-18.0) gm/dl Hct (42-50) % MCV (78-100) fl MCH (26-32) pg MCHC (32-36) g/dl RDW (11.5-14.0) % Plt Count (150-450) K/mm3 MPV (6-9.5) fl Gran % (36.0-66.0) % Eos # (Auto) (0-0.5) Absolute Lymphs (auto) (1.0-4.6) Absolute Monos (auto) (0.0-1.3) Lymphocytes % (24.0-44.0) % Monocytes % (0.0-12.0) % Eosinophils % (0.00-5.0) % Basophils % (0.0-0.4) % Absolute Granulocytes (1.4-6.9) Basophils # (0-0.4) PT 16.5 H (8.83-12.87) SECONDS INR 1.45 (0.8-3.0) APTT 46.8 H (24.1-36.1) SECONDS pO2/FiO2 Ratio % VBG pH (7.32-7.42) VBG pCO2 at Pat Temp (42-55) mm/Hg VBG pO2 at Pat Temp (25-40) mm/Hg VBG HCO3 (22-28) meq/L VBG O2 Sat (Zachery) (95-100) VBG Base Excess (-2.0-2.0) VBG Hemoglobin VBG Carboxyhemoglobin (0.0-6.9) % T HGB POC Potassium (3.5-5.1) Sodium 139 (137-145) mmol/L Potassium 4.2 (3.5-5.1) mmol/L Chloride 103 (98-107) mmol/L Carbon Dioxide 25 (22-30) mmol/L Anion Gap 15.8 H (5-15) MEQ/L BUN 18 (9-20) mg/dL Creatinine 1.04 (0.66-1.25) mg/dL Estimated GFR > 60.0 ML/MIN Glucose 130 H (74-106) mg/dL Lactic Acid 2.3 H (0.4-2.0) Calcium 10.0 (8.4-10.2) mg/dL Total Bilirubin 0.60 (0.2-1.3) mg/dL AST 32 (17-59) U/L ALT 20 (0-50) U/L Alkaline Phosphatase 145 H (38-126) U/L Serum Total Protein 9.7 H (6.3-8.2) g/dL Albumin 4.3 (3.5-5.0) g/dL Influenza Type A Ag (NEGATIVE) Influenza Type B Ag (NEGATIVE) RSV (PCR) (Negative) 08/21/18 Range/Units 17:20 WBC 11.8 H (4.0-10.5) K/mm3 RBC 5.05 (4.1-5.6) M/mm3 Hgb 13.9 (12.5-18.0) gm/dl Hct 42.9 (42-50) % MCV 85.0 (78-100) fl MCH 27.5 (26-32) pg MCHC 32.4 (32-36) g/dl RDW 16.4 H (11.5-14.0) % Plt Count 229 (150-450) K/mm3 MPV 9.6 H (6-9.5) fl Gran % 77.5 H (36.0-66.0) % Eos # (Auto) 0.57 H (0-0.5) Absolute Lymphs (auto) 1.41 (1.0-4.6) Absolute Monos (auto) 0.63 (0.0-1.3) Lymphocytes % 12.0 L (24.0-44.0) % Monocytes % 5.4 (0.0-12.0) % Eosinophils % 4.8 (0.00-5.0) % Basophils % 0.3 (0.0-0.4) % Absolute Granulocytes 9.11 H (1.4-6.9) Basophils # 0.04 (0-0.4) PT (8.83-12.87) SECONDS INR (0.8-3.0) APTT (24.1-36.1) SECONDS pO2/FiO2 Ratio % VBG pH (7.32-7.42) VBG pCO2 at Pat Temp (42-55) mm/Hg VBG pO2 at Pat Temp (25-40) mm/Hg VBG HCO3 (22-28) meq/L VBG O2 Sat (Zachery) (95-100) VBG Base Excess (-2.0-2.0) VBG Hemoglobin VBG Carboxyhemoglobin (0.0-6.9) % T HGB POC Potassium (3.5-5.1) Sodium (137-145) mmol/L Potassium (3.5-5.1) mmol/L Chloride (98-107) mmol/L Carbon Dioxide (22-30) mmol/L Anion Gap (5-15) MEQ/L BUN (9-20) mg/dL Creatinine (0.66-1.25) mg/dL Estimated GFR ML/MIN Glucose (74-106) mg/dL Lactic Acid (0.4-2.0) Calcium (8.4-10.2) mg/dL Total Bilirubin (0.2-1.3) mg/dL AST (17-59) U/L ALT (0-50) U/L Alkaline Phosphatase (38-126) U/L Serum Total Protein (6.3-8.2) g/dL Albumin (3.5-5.0) g/dL Influenza Type A Ag (NEGATIVE) Influenza Type B Ag (NEGATIVE) RSV (PCR) (Negative) - Progress Air Movement: fair Progress Note: 08/21/18 21:08 PLACED ON SEPSIS PROTOCOL, IV NORMAL SALINE 2 LITERS WIDE OPEN, DUO NEB, FOLLOWED BY CONTINUOUS ALBUTEROL 10 MG OVER 1 HOUR, IV ROCEPHIN 1GM, ZITHROMAX 500MG IVPB Blood Culture(s) Obtained: Yes Antibiotics given: Yes Discussed with : Other (DISCUSSED WITH DR WALDROP AT 2044 ACCEPTS TRANSFER TO [facility]) - Departure Departure Disposition: Transfer Clinical Impression: EXACERATION OF COPD Condition: Stable Critical Care Time: No Referrals: ARLIN WALDROP [Primary Care Provider] -
[2018-08-21 20:34] LABS: Lactic Acid 3.7 (0.4-2.0)
[2018-08-21 21:47] VITALS: BP 126/79; PULSE 101; O2SAT 94
[2018-08-21 22:07] LABS: Appearance CLEAR (CLEAR); Bilirubin NEGATIVE (NEGATIVE); Blood NEGATIVE Ery/ul (0-5); Glucose 150 mg/dL (NEGATIVE); Ketones TRACE (NEGATIVE); Leukocyte Esterase NEGATIVE (NEGATIVE); Mucus SLIGHT /HPF (NEGATIVE); Nitrite NEGATIVE (NEGATIVE); Protein,Urine Dip NEGATIVE (Negative); Urobilinogen NEGATIVE mg/dL (0-1)
--- NOTE | 2018-08-22 08:33 | XRAY ---
Indication: Cough, short of breath, and chest tightness. History DVT. Multiple contiguous axial images obtained through the chest using 80 cc Isovue 370 contrast and PE protocol. Comparison: None There is suboptimal opacification of the pulmonary arteries. Additionally, there is mild respiration artifact. Findings limits evaluation for pulmonary embolus. No large central pulmonary embolus. Heart is not enlarged. Aorta is normal in course and caliber. Left perihilar calcified nodes. No pathologic mediastinal/hilar lymphadenopathy. Examination of the lung parenchyma demonstrates mild bibasilar atelectasis/scarring. Left lower lobe calcified granuloma. No suspicious pulmonary mass, infiltrate, or effusion. Bony thorax demonstrates flowing osteophytes throughout the spine. Old right 8-10 rib fractures. Several prominent bilateral axilla lymph nodes, largest on left measuring 1.1 x 2.3 cm. Limited upper abdomen demonstrates mild fatty liver, calcified splenic granulomas, 8mm hepatic cyst, 6 mm gallstone, and 1.8 cm left upper pole renal cyst. Impression: 1. Pulmonary embolus evaluation limited due to suboptimal pulmonary artery opacification and respiration artifact. No large central pulmonary embolus. 2. No acute cardiopulmonary abnormalities. Incidental scattered atelectasis/scarring and evidence for old granulomatous disease. 3. Incidental fatty liver, hepatic cysts, gallstone, and left renal cysts. CT DI 23.68
== END 2018-08-21 22:00 | disposition short-term general hospital (02) ==
LOC: ED 16:45
DX: J44.1 Chronic obstructive pulmonary disease with (acute) exacerbation (principal); Z86.711 Personal history of pulmonary embolism; Z79.899 Other long term (current) drug therapy
CPT/HCPCS: 36000; 36415; 71260; 80053; 81001; 82805; 83605; 85025; 85610; 85730; 87040; 87077; 87086; 87631; 93005; 93041; 94150; 94640; 96360; 96361; 96365; 99285; J0456; J0696; J7609; A9270-GY

== ENCOUNTER 2022-02-08 03:44 | Emergency (ER) | payer MEDICARE, OTHER ==
--- NOTE | 2022-02-08 04:16 | ERPHSYRPT ---
- History of Present Illness Time Seen by Provider: 02/08/22 04:10 Source: patient Exam Limitations: no limitations Patient Subjective Stated Complaint: pt states he has been sick for 2 weeks, began as cough and flu like symptoms, states he began to feel better after sleep ing a long period of time two weeks ago, but then began coughing agiain on tuesday two weeks ago. pt states he called his MD this passed tuesday04/07/21. he was prescribed tessalon pearls. Triage Nursing Assessment: pt ambulated to room without assist. pt laying in bed at this time, coughing intermittently . cough is dry hacking cough, pt vitals are O2-95%, BP 161/94. HR 93, respirations-20. Physician History: This is a 71-year-old white male patient who is on Xarelto chronically for treatment/prevention of DVTs. Per the last 2 weeks he states he has been ill with flulike symptoms and nonproductive cough. Patient states that he seemed to be improving but approxi-4 days ago the cough has returned and despite Tessalon Perles his flulike symptoms and cough have persisted. He has no chest pain. He has no abdominal pain. He said no fevers. He denies nausea, vomiting and diarrhea. Timing/Duration: week(s) (2) Cough Quality/Degree: moderate, dry cough Possible Cause: no prior episodes Modifying Factors: Improves With: coughing Associated Symptoms: cough, shortness of breath (During coughing spells), No c hest pain/soreness Allergies/Adverse Reactions: diclofenac [From Voltaren] Allergy (Verified 08/21/18 16:54) Home Medications: Albuterol Common Canister [Ventolin Common Canister] 1 puff DAILY 08/21/18 [History] Azithromycin [Zithromax] 1 tab DAILY 08/21/18 [History] Rivaroxaban [Xarelto] 2.5 mg DAILY 08/21/18 [History] Tiotropium [place] [Spiriva Respimat] 1 puff DAILY 08/21/18 [History] methylPREDNISolone [Methylprednisolone] 1 tab DAILY 08/21/18 [History] Hx Tetanus, Diphtheria Vaccination/Date Given: Yes Hx Influenza Vaccination/Date Given: No Hx Pneumococcal Vaccination/Date Given: No Travel Risk - International Travel Have you traveled outside of the country in past 3 weeks: No - Coronavirus Screening Are you exhibiting any of the following symptoms?: Yes Symptoms: Cough: New Onset Close contact with a COVID-19 positive Pt in past 14-21 Days: No - Vaccine Status Have you recieved a Covid-19 vaccination: No - Review of Systems Constitutional: No Symptoms Eyes: No Symptoms Ears, Nose, & Throat: No Symptoms Respiratory: Cough, Dyspnea (During coughing episodes) Cardiac: No Symptoms Abdominal/Gastrointestinal: No Symptoms Genitourinary Symptoms: No Symptoms Musculoskeletal: No Symptoms Skin: No Symptoms Neurological: No Symptoms Psychological: No Symptoms Endocrine: No Symptoms Hematologic/Lymphatic: No Symptoms Immunological/Allergic: No Symptoms All Other Systems: Reviewed and Negative - Past Medical History Pertinent Past Medical History: Yes Neurological History: No Pertinent History ENT History: No Pertinent History Cardiac History: No Pertinent History Respiratory History: Sleep Apnea Endocrine Medical History: No Pertinent History Musculoskeletal History: No Pertinent History GI Medical History: No Pertinent History, GERD History: No Pertinent History Psycho-Social History: No Pertinent History Male Reproductive Disorders: No Pertinent History Other Medical History: dvt right leg in 03/2018 - Past Surgical History Past Surgical History: Yes Neuro Surgical History: No Pertinent History Cardiac: No Pertinent History Respiratory: No Pertinent History Gastrointestinal: Hernia Repair Genitourinary: No Pertinent History Musculoskeletal: Orthopedic Surgery Male Surgical History: No Pertinent History Other Surgical History: LUNG SURG,CYST ON WRIST REMOVED, - Social History Smoking Status: Never smoker Exposure to second hand smoke: No Drug Use: none Patient Lives Alone: No - Nursing Vital Signs Nursing Vital Signs: Initial Vital Signs Temperature 97.7 F 02/08/22 03:50 Pulse Rate 102 H 02/08/22 03:50 Respiratory Rate 18 02/08/22 03:50 O2 Sat by Pulse Oximetry 95 02/08/22 03:50 Pain Scale Pain Intensity 0 - Physical Exam General Appearance: no apparent distress, alert, obese Eye Exam: PERRL/EOMI, eyes nml inspection Ears, Nose, Throat Exam: normal ENT inspection, moist mucous membranes Neck Exam: normal inspection, non-tender, supple, full range of motion Respiratory Exam: normal breath sounds, lungs clear, airway intact, No chest tenderness, No respiratory distress Cardiovascular Exam: regular rate/rhythm, normal heart sounds, normal peripheral pulses Gastrointestinal/Abdomen Exam: soft, normal bowel sounds, No tenderness Rectal Exam: not done Extremity Exam: normal inspection, normal range of motion, pelvis stable Neurologic Exam: alert, oriented x 3, cooperative, 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 as tested, normal mood/affect, nml cerebellar function, nml station & gait, sensation nml Skin Exam: normal color, warm, dry Lymphatic Exam: No adenopathy SpO2 Interpretation: normal SpO2: 95 O2 Delivery: Room Air - Course Nursing assessment & vital signs reviewed: Yes Ordered Tests: Active Orders 24 hr Category Date Time Status Automatic 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 STAT Care 02/08/22 04:17 Active IV Insertion STAT Care 02/08/22 05:26 Active Pulse Oximetry (ED) STAT Care 02/08/22 04:16 Active CHEST 1 VIEW (PORTABLE) Stat Exams 02/08/22 04:16 Taken CHEST WITH CONTRAST [CT] Stat Exams 02/08/22 05:26 Taken CBC W DIFF Stat Lab 02/08/22 04:52 Completed CMP Stat Lab 02/08/22 04:52 Completed D-DIMER QUANTITATIVE Stat Lab 02/08/22 04:52 Completed NT PRO BNP Stat Lab 02/08/22 04:52 Completed Medication Summary Discontinued Medications Generic Name Dose Route Start Last Admin Trade Name Freq PRN Reason Stop Dose Admin Hydrocodone Bitart/Acetaminophen 15 ml 02/08/22 06:09 02/08/22 06:25 Hydrocodone/Acetaminophen 5 Ml Udcup PO 02/08/22 06:10 15 ml STAT STA Administration Hydrocodone Bitart/Acetaminophen Confirm 02/08/22 06:22 Hydrocodone/Acetaminophen 5 Ml Udcup Administered 02/08/22 06:23 Dose 15 ml .ROUTE .STK-MED ONE Methylprednisolone Sodium 0 mg 02/08/22 06:09 02/08/22 06:25 Succinate 125 mg/ Sterile IV 02/08/22 06:10 125 mg Water 2 ml STAT ONE Administration Sodium Chloride 500 mls @ 500 mls/hr 02/08/22 05:26 02/08/22 05:55 Sodium Chloride 0.9% 500 Ml IV 02/08/22 06:25 500 mls/hr .Q1H ONE Administration Sodium Chloride Confirm 02/08/22 05:33 Sodium Chloride 0.9% 500 Ml Administered 02/08/22 05:34 Dose 500 mls @ ud IV .STK-MED ONE Ceftriaxone Sodium/Dextrose 1 g in 50 mls @ 100 mls/hr 02/08/22 06:09 02/08/22 06:24 Rocephin 1 Gm-D5w 50 Ml Bag IV 02/08/22 06:38 100 ml/hr STAT STA 100 mls/hr Administration Ceftriaxone Sodium/Dextrose Confirm 02/08/22 06:23 Rocephin 1 Gm-D5w 50 Ml Bag Administered 02/08/22 06:24 Dose 1 g in 50 mls @ ud IV .STK-MED ONE Methylprednisolone Sodium Succinate Confirm 02/08/22 06:23 Methylprednis Sod Succ 125 Mg/2 Ml Vial Administered 02/08/22 06:24 Dose 125 mg .ROUTE .STK-MED ONE Sterile Water Confirm 02/08/22 06:22 Water For Injection,Sterile 10 Ml Vial Administered 02/08/22 06:23 Dose 10 ml IJ .STK-MED ONE Lab/Rad Data: Laboratory Result Diagrams 02/08/22 04:52 02/08/22 04:52 Laboratory Results 02/08/22 02/08/22 02/08/22 Range/Units 04:52 04:52 04:52 WBC (4.0-10.5) x10^3/uL RBC (4.1-5.6) x10^6/uL Hgb (12.5-18.0) g/dL Hct (42-50) % MCV (78-100) fL MCH (26-32) pg MCHC (32-36) g/dL RDW (11.5-14.0) % Plt Count (150-450) x10^3/uL MPV (7.5-11.0) fL Gran % (36.0-66.0) % Immature Gran % (Auto) (0.00-0.4) % Nucleat RBC Rel Count (0.00-0.1) % Eos # (Auto) (0-0.5) x10^3/uL Immature Gran # (Auto) (0.00-0.03) x10^3u/L Absolute Lymphs (auto) (1.0-4.6) x10^3/uL Absolute Monos (auto) (0.0-1.3) x10^3/uL Absolute Nucleated RBC (0.00-0.01) x10^3u/L Lymphocytes % (24.0-44.0) % Monocytes % (0.0-12.0) % Eosinophils % (0.00-5.0) % Basophils % (0.0-0.4) % Absolute Granulocytes (1.4-6.9) x10^3/uL Basophils # (0-0.4) x10^3/uL D-Dimer 0.85 H* (0.0-0.50) mg/L Sodium 136 L (137-145) mmol/L Potassium 4.1 (3.5-5.1) mmol/L Chloride 102 (98-107) mmol/L Carbon Dioxide 26 (22-30) mmol/L Anion Gap 12.1 (5-15) MEQ/L BUN 22 H (9-20) mg/dL Creatinine 0.94 (0.66-1.25) mg/dL Estimated GFR > 60.0 ML/MIN Glucose 147 H (74-106) mg/dL Calcium 9.2 (8.4-10.2) mg/dL Total Bilirubin 0.30 (0.2-1.3) mg/dL AST 36 (17-59) U/L ALT 29 (0-50) U/L Alkaline Phosphatase 88 (38-126) U/L NT-Pro-B Natriuret Pep 86.7 (0-900) pg/mL Serum Total Protein 8.4 H (6.3-8.2) g/dL Albumin 4.0 (3.5-5.0) g/dL Influenza Type A Ag NEGATIVE (NEGATIVE) Influenza Type B Ag NEGATIVE (NEGATIVE) RSV (PCR) NEGATIVE (Negative) SARS-CoV-2 (PCR) NEGATIVE (NEGATIVE) 02/08/22 Range/Units 04:52 WBC 9.6 (4.0-10.5) x10^3/uL RBC 4.66 (4.1-5.6) x10^6/uL Hgb 12.8 (12.5-18.0) g/dL Hct 40.2 L (42-50) % MCV 86.3 (78-100) fL MCH 27.5 (26-32) pg MCHC 31.8 L (32-36) g/dL RDW 14.3 H (11.5-14.0) % Plt Count 167 (150-450) x10^3/uL MPV 9.5 (7.5-11.0) fL Gran % 74.1 H (36.0-66.0) % Immature Gran % (Auto) 0.4 (0.00-0.4) % Nucleat RBC Rel Count 0.0 (0.00-0.1) % Eos # (Auto) 1.19 H (0-0.5) x10^3/uL Immature Gran # (Auto) 0.04 H (0.00-0.03) x10^3u/L Absolute Lymphs (auto) 0.63 L (1.0-4.6) x10^3/uL Absolute Monos (auto) 0.58 (0.0-1.3) x10^3/uL Absolute Nucleated RBC 0.00 (0.00-0.01) x10^3u/L Lymphocytes % 6.6 L (24.0-44.0) % Monocytes % 6.1 (0.0-12.0) % Eosinophils % 12.4 H (0.00-5.0) % Basophils % 0.4 (0.0-0.4) % Absolute Granulocytes 7.09 H (1.4-6.9) x10^3/uL Basophils # 0.04 (0-0.4) x10^3/uL D-Dimer (0.0-0.50) mg/L Sodium (137-145) mmol/L Potassium (3.5-5.1) mmol/L Chloride (98-107) mmol/L Carbon Dioxide (22-30) mmol/L Anion Gap (5-15) MEQ/L BUN (9-20) mg/dL Creatinine (0.66-1.25) mg/dL Estimated GFR ML/MIN Glucose (74-106) mg/dL Calcium (8.4-10.2) mg/dL Total Bilirubin (0.2-1.3) mg/dL AST (17-59) U/L ALT (0-50) U/L Alkaline Phosphatase (38-126) U/L NT-Pro-B Natriuret Pep (0-900) pg/mL Serum Total Protein (6.3-8.2) g/dL Albumin (3.5-5.0) g/dL Influenza Type A Ag (NEGATIVE) Influenza Type B Ag (NEGATIVE) RSV (PCR) (Negative) SARS-CoV-2 (PCR) (NEGATIVE) - Progress Progress: improved Air Movement: good Progress Note: 02/08/22 05:22 Chest x-ray shows increased bronchovascular markings Blood Culture(s) Obtained: No Counseled pt/family regarding: lab results, diagnosis, need for follow-up, rad results - Departure Departure Disposition: Home Clinical Impression: Upper respiratory infection Condition: Stable Critical Care Time: No Referrals: ARLIN WALDROP [Primary Care Provider] - Follow up/PCP as directed Additional Instructions: Drink plenty of clear liquids. Take your medication as prescribed. Follow-up with your primary care provider for further evaluation management. Prescriptions: Hydrocodone/Acetaminophen [Hydrocodone-Acetamn 7.5-325/15] 10 ml PO Q8H PRN PRN #120 ml MDD 30 ml PRN Reason: Cough Cefdinir 300 mg PO BID #14 cap Methylprednisolone Packet [Medrol Dosepack] 4 mg PO UD #1 packet
[2022-02-08 04:56] LABS: Absolute Neutrophil Ct (ANC) 7.09 x10^3/uL (1.4-6.9); Basophil (Absolute #) 0.04 x10^3/uL (0-0.4); Eosinophil % 12.4 % (0.00-5.0); Eosinophil (Absolute #) 1.19 x10^3/uL (0-0.5); Hematocrit 40.2 % (42-50); Hemoglobin 12.8 g/dL (12.5-18.0); Lymphocyte (Absolute #) 0.63 x10^3/uL (1.0-4.6); Lymphocytes % 6.6 % (24.0-44.0); Mean Cell Volume 86.3 fL (78-100); Mean Corpuscular Hemoglobin 27.5 pg (26-32); Mean Corpuscular Hgb Concent. 31.8 g/dL (32-36); Mean Platelet Volume 9.5 fL (7.5-11.0); Monocyte (Absolute #) 0.58 x10^3/uL (0.0-1.3); Monocytes % 6.1 % (0.0-12.0); Neutrophil % 74.1 % (36.0-66.0); Platelet Count 167 x10^3/uL (150-450); Red Blood Count 4.66 x10^6/uL (4.1-5.6); Red Cell Distribution Width 14.3 % (11.5-14.0); White Blood Count 9.6 x10^3/uL (4.0-10.5)
[2022-02-08 05:16] LABS: ALKALINE PHOSPHATASE 88 U/L (38-126); ANION GAP 12.1 MEQ/L (5-15); BLOOD UREA NITROGEN 22 mg/dL (9-20); CHLORIDE 102 mmol/L (98-107); Calcium 9.2 mg/dL (8.4-10.2); Carbon Dioxide 26 mmol/L (22-30); Creatinine 1 0.94 mg/dL (0.66-1.25); EST GLOMERULAR FILTRATION RATE > 60.0 ML/MIN; Glucose 147 mg/dL (74-106); NT PRO BNP 86.7 pg/mL (0-900); Potassium 4.1 mmol/L (3.5-5.1); SGOT/AST 36 U/L (17-59); SGPT/ALT 29 U/L (0-50); SODIUM 136 mmol/L (137-145); Total Protein 8.4 g/dL (6.3-8.2)
[2022-02-08] MEDS ORDERED: Sodium Chloride 0.9% 500 ML 500 ML IV ONE ×2 (05:26→05:33)
[2022-02-08 05:35] LABS: INFLUENZA A NEGATIVE (NEGATIVE); INFLUENZA B NEGATIVE (NEGATIVE); RESPIRATORY SYNCTIAL VIRUS NEGATIVE (Negative); SARS-CoV-2 Xpert Express NEGATIVE (NEGATIVE)
[2022-02-08] MEDS ORDERED: solu-MEDROL 125 MG, Sterile H2O 10 ml 2 ML IV ONE ×2 (06:09)
[2022-02-08] MEDS ORDERED: HYDROCODONE-ACETAMIN 2.5-108/5 ML SOLUTION PO STA (06:09)
[2022-02-08] MEDS ORDERED: ROCEPHIN 1 Gm-D5w 50 ml Bag** 1 G/50 ML IVPB IV STA (06:09)
[2022-02-08 06:16] VITALS: O2SAT 95
[2022-02-08] MEDS ORDERED: HYDROCODONE-ACETAMIN 2.5-108/5 ML SOLUTION ONE (06:22)
[2022-02-08] MEDS ORDERED: Sterile H2O 10 ml IJ ONE (06:22)
[2022-02-08] MEDS ORDERED: solu-MEDROL ONE (06:23)
[2022-02-08] MEDS ORDERED: ROCEPHIN 1 Gm-D5w 50 ml Bag** 1 G/50 ML IVPB IV ONE (06:23)
[2022-02-08 07:03] VITALS: BP 129/68; PULSE 78
--- NOTE | 2022-02-08 08:47 | XRAY ---
Indication: Cough 2 weeks. Comparison: April 15, 2021 Portable chest again demonstrate bibasilar subsegmental atelectasis/scarring less than before and old granulomatous disease. Heart not enlarged. Bony thorax intact again with osteopenia and degenerative changes. No new/acute findings.
--- NOTE | 2022-02-08 08:47 | XRAY ---
Indication: Cough. Elevated d-dimer. History DVT. Multiple contiguous axial images obtained through the chest using 100 cc Isovue 370 contrast and PE protocol. Comparison: August 21, 2018 Good opacification of the pulmonary arteries to include the lobar and segmental branches. No pulmonary embolus. Heart not enlarged. Aorta minimally etcher sclerotic without aneurysm/dissection. Stable small left hilar calcified nodes. No pathologic mediastinal/hilar lymphadenopathy. Lungs again demonstrates bilateral mid to lower lung subsegmental atelectasis/scarring and tiny left lower lobe calcified granuloma. No new pulmonary mass/nodule, infiltrate, or effusion. Bony thorax intact again with mild osteopenia and flowing osteophytes throughout the spine and old right rib fractures. Again prominent bilateral axilla lymph nodes again largest on the left measuring 1.1 x 2.0 cm. Limited upper abdomen again demonstrates fatty liver, tiny hepatic cyst, small left renal cyst, tiny hepatic/splenic calcified granulomas, and 6 mm gallstone. Spleen is now enlarged measuring 16.9 cm. Impression: 1. Continued negative pulmonary embolus. No new/acute cardiopulmonary abnormalities. 2. Again nonspecific prominent bilateral axillary lymph nodes. 3. Again chronic findings including scattered atelectasis/scarring, chronic bony findings, hepatic/left renal cysts, fatty liver, gallstone, splenomegaly, and chronic bony findings. Comment: Preliminary interpretation made by C. No critical discrepancy.
== END 2022-02-08 07:33 | disposition home or self-care (01) ==
LOC: ED 03:44
DX: J06.9 Acute upper respiratory infection, unspecified (principal); R05.9 Cough, unspecified; Z79.01 Long term (current) use of anticoagulants; Z28.310 Unvaccinated for COVID-19; Z79.899 Other long term (current) drug therapy; Z79.891 Long term (current) use of opiate analgesic; Z79.52 Long term (current) use of systemic steroids; Z86.718 Personal history of other venous thrombosis and embolism
CPT/HCPCS: 0241U; 36000; 36415; 71045; 71260; 80053; 83880; 85025; 85379; 93041; 94760; 96360; 96374; 96375; 99284; J0696; J2930; A9270-GY

== ENCOUNTER 2023-06-28 12:00 | Emergency (ER) | payer MEDICARE, OTHER ==
--- NOTE | 2023-06-28 12:08 | ERPHSYRPT ---
- History of Present Illness Time Seen by Provider: 06/28/23 12:07 Source: patient Exam Limitations: no limitations Physician History: 72-year-old male presents to our ED for evaluation of pain to his left lateral rib. Patient was at work tripped and fell and injured his left rib on a curb. No BHT or LOC no neck pain. Cervical spine cleared clinically. No other injuries reported. Patient otherwise feels well. He voices no other complaints or concerns at this time. Portions of this note were created with voice recognition technology. There may be grammatical, spelling, punctuation or sound alike errors Timing/Duration: today Severity: moderate Modifying Factors: Improves With: nothing Associated Symptoms: denies symptoms Allergies/Adverse Reactions: diclofenac [From Voltaren] Allergy (Verified 08/21/18 16:54) Home Medications: No Reportable Medications [No Reported Medications] 06/28/23 [History] Hx Tetanus, Diphtheria Vaccination/Date Given: Yes Hx Influenza Vaccination/Date Given: No Hx Pneumococcal Vaccination/Date Given: No - Review of Systems Constitutional: No Symptoms, No Fever, No Chills Eyes: No Symptoms Ears, Nose, & Throat: No Symptoms Respiratory: No Symptoms, No Cough, No Dyspnea Cardiac: No Symptoms, No Chest Pain, No Edema, No Syncope Abdominal/Gastrointestinal: No Symptoms, No Abdominal Pain, No Nausea, No Vomiting, No Diarrhea Genitourinary Symptoms: No Symptoms, No Dysuria Musculoskeletal: No Symptoms, No Back Pain, No Neck Pain Skin: No Symptoms, No Rash Neurological: No Symptoms, No Dizziness, No Focal Weakness, No Sensory Changes Psychological: No Symptoms Endocrine: No Symptoms Hematologic/Lymphatic: No Symptoms Immunological/Allergic: No Symptoms All Other Systems: Reviewed and Negative - Past Medical History Pertinent Past Medical History: Yes Neurological History: No Pertinent History ENT History: No Pertinent History Cardiac History: No Pertinent History Respiratory History: Sleep Apnea Endocrine Medical History: No Pertinent History Musculoskeletal History: No Pertinent History GI Medical History: No Pertinent History, GERD History: No Pertinent History Psycho-Social History: No Pertinent History Male Reproductive Disorders: No Pertinent History Other Medical History: dvt right leg in 03/2018 - Past Surgical History Past Surgical History: Yes Neuro Surgical History: No Pertinent History Cardiac: No Pertinent History Respiratory: No Pertinent History Gastrointestinal: Hernia Repair Genitourinary: No Pertinent History Musculoskeletal: Orthopedic Surgery Male Surgical History: No Pertinent History Other Surgical History: LUNG SURG,CYST ON WRIST REMOVED, - Social History Smoking Status: Never smoker Exposure to second hand smoke: No Drug Use: none Patient Lives Alone: No - Nursing Vital Signs Nursing Vital Signs: Initial Vital Signs Temperature 97.8 F 06/28/23 12:04 Pulse Rate 70 06/28/23 12:04 Respiratory Rate 20 06/28/23 12:04 Blood Pressure 171/85 06/28/23 12:04 O2 Sat by Pulse Oximetry 98 06/28/23 12:04 Pain Scale Pain Intensity 3 - Physical Exam General Appearance: no apparent distress, alert Eye Exam: PERRL/EOMI, eyes nml inspection Ears, Nose, Throat Exam: normal ENT inspection, TMs normal, pharynx normal, moist mucous membranes Neck Exam: normal inspection, non-tender, supple, full range of motion Respiratory Exam: normal breath sounds, lungs clear, No respiratory distress Cardiovascular Exam: regular rate/rhythm, normal heart sounds, normal peripheral pulses, other (Tenderness to palpation left lateral ribs.) Gastrointestinal/Abdomen Exam: soft, normal bowel sounds, other (No abdominal pain. No left or right upper quadrant pain or tenderness. No signs of trauma. Negative: Negative Wolf Rodas sign.), No tenderness, No mass Back Exam: normal inspection, normal range of motion, No CVA tenderness, No vertebral tenderness Extremity Exam: normal inspection, normal range of motion, pelvis stable Neurologic Exam: alert, oriented x 3, cooperative, normal mood/affect, nml cerebellar function, nml station & gait, sensation nml, No motor deficits Skin Exam: normal color, warm, dry, No rash Lymphatic Exam: No adenopathy SpO2 Interpretation: normal SpO2: 98 O2 Delivery: Room Air - Course Nursing assessment & vital signs reviewed: Yes - Radiology Exams Chest X-ray Interpretation: Teleradiologist Report (Atelectasis versus infiltrate. Likely atelectasis as patient has no clinical findings concerning for infiltrate. Left perihilar calcified granuloma.) Ribs X-ray Interpretation: Teleradiologist Report (Nonacute rib x-ray with chronic features including osteopenia old rib fractures arthritic changes of left shoulder and spine) Ordered Tests: Active Orders 24 hr Category Date Time Status CHEST 1 VIEW (PORTABLE) Stat Exams 06/28/23 12:06 Completed RIBS UNILATERAL Stat Exams 06/28/23 12:05 Completed - Progress Progress: improved Progress Note: 72-year-old male presents to our ED for evaluation of a fall with subsequent left rib pain. Physical exam reveals some tenderness over the left lateral rib. X-ray negative for fracture dislocation. No acute findings observed in either the chest x-ray or the rib x-ray. Patient received Tylenol for pain control. Patient resting comfortably. Portions of this note were created with voice recognition technology. There may be grammatical, spelling, punctuation or sound alike errors Complexity problem addressed is moderate acute complicated. No critical care time Complex of data reviewed and analyzed is moderate. Test ordered test reviewed results analyzed and correlated clinically with history and physical exam. Risk of complication and or risk of morbidity/mortality patient management is low. Vital stable. Time spent to discharge patient is approximately 15 minutes. Plan of care established for shared decision making. No social determinants of health present impede follow-up. Portions of this note were created with voice recognition technology. There may be grammatical, spelling, punctuation or sound alike errors 06/28/23 12:58 Counseled pt/family regarding: diagnosis, need for follow-up, rad results - Departure Departure Disposition: Home Clinical Impression: Fall, Contusion of rib on left side Condition: Stable Critical Care Time: No Referrals: ARLIN WALDROP [Primary Care Provider] - Follow up/PCP as directed Additional Instructions: Discharge/Care Plan PANCHO COPPOLA was seen on 06/28/23 in the Emergency Room. The patient was counseled regarding Diagnosis,Lab results, Imaging studies, need for follow up and when to return to the Emergency Room. Prescriptions given: Discharge Note I have spoken with the patient and/or caregivers. I have explained the patient's condition, diagnosis and treatment plan based on the information available to me at this time. I have answered the patient's and/or caregiver's questions and addressed any concerns. The patient and/or caregivers have as good understanding of the patient's diagnosis, condition and treatment plan as can be expected at this point. The vital signs have been stable. The patient's condition is stable and appropriate for discharge from the emergency department. The patient will pursue further outpatient evaluation with the primary care physician or other designated or consulting physician as outlined in the discharge instructions. The patient and/or caregivers are agreeable to this plan of care and follow-up instructions have been explained in detail. The patient and/or caregivers have received these instruction. The patient/and or caregivers are aware that any significant change in condition or worsening of symptoms should prompt an immediate return to this or the closest emergency department or call 911.
[2023-06-28 12:09] VITALS: RESP 20; TEMP 97.8
--- NOTE | 2023-06-28 12:51 | XRAY ---
Indication: Pain following fall. Comparison: None 2 view left ribs demonstrates osteopenia, old 2 rib fracture, moderate left shoulder degenerative arthropathy, mild/moderate multilevel thoracolumbar degenerative spondylosis, small left perihilar calcified granulomas, and left axilla surgical clip. No other bony, articular, or soft tissue abnormalities. Impression: Nonacute left ribs with chronic features.
--- NOTE | 2023-06-28 12:51 | XRAY ---
Indication: Left lateral rib pain following fall. Comparison: April 25, 2022 Portable chest unchanged again demonstrating mild right base infiltrate/atelectasis with tiny effusion. Remaining heart and left lung unremarkable again with incidental left perihilar calcified granulomas. Bony thorax intact again with osteopenia and degenerative changes. No new/acute findings.
[2023-06-28 12:58] VITALS: BP 134/80; PULSE 72
[2023-06-28] MEDS ORDERED: TYLENOL 325 MG ONE (12:59)
[2023-06-28 13:00] VITALS: O2SAT 98
[2023-06-28] MEDS: TYLENOL 325 MG PO ONE (13:00)
== END 2023-06-28 13:06 | disposition home or self-care (01) ==
LOC: ED 12:00
DX: R07.81 Pleurodynia (principal); W18.31XA Fall on same level due to stepping on an object, initial encounter
CPT/HCPCS: 71045; 71100; 99282; A9270-GY

== ENCOUNTER 2023-09-08 08:59 | Emergency (ER) | payer OTHER ==
[2023-09-08 09:28] VITALS: TEMP 98; O2SAT 98
[2023-09-08 09:31] VITALS: BP 144/73; PULSE 64; RESP 17
[2023-09-08] MEDS ORDERED: XYLOCAINE 1% HCL 20 ML MDV ONE (09:34)
[2023-09-08] MEDS ORDERED: Adacel Vial IM ONE (09:34)
[2023-09-08] MEDS: XYLOCAINE 1% HCL 20 ML MDV IJ ONE (09:35)
[2023-09-08] MEDS: Adacel Vial IM ONE (09:35)
[2023-09-08] MEDS ORDERED: BACIGUENT PACKET ONE (09:50)
[2023-09-08] MEDS: BACIGUENT PACKET TP ONE (09:51)
--- NOTE | 2023-09-08 09:52 | ERPHSYRPT ---
- History of Present Illness Time Seen by Provider: 09/08/23 09:02 Source: patient Exam Limitations: no limitations Patient Subjective Stated Complaint: Laceration to left wrist. Patient works for the [employer] and cut his wrist using a platen grinder today just prior to c oming into the ER. Triage Nursing Assessment: Patient ambulated back to ER without difficulties. He is alert and oriented. Laceration present to left wrist. Area meaures 0.3cm X 2cm. No active bleeding at this time. Area cleansed with sterile water and hibiclens. Mobility to hand and wrist WNL. Physician History: 72-year-old right-handed dominant male presented in the ER after he accidentally left in her wrist area while working with a platen grinder at his job. Patient reports bleeding initially but stopped with applying pressure. No difficulty movements of the wrist or fingers. No numbness or tingling in the fingers. Unsure about tetanus status. Allergies/Adverse Reactions: diclofenac [From Voltaren] Allergy (Verified 09/08/23 09:11) Home Medications: Omeprazole 40 mg PO DAILY 09/08/23 [History] Hx Tetanus, Diphtheria Vaccination/Date Given: No (NOT TETANUS) Hx Influenza Vaccination/Date Given: No Hx Pneumococcal Vaccination/Date Given: No Immunizations Up to Date: Yes Travel Risk - International Travel Have you traveled outside of the country in past 3 weeks: No - Emerging Infectious Disease Are you exhibiting symptoms associated with any current EIDs: No - Review of Systems Constitutional: No Symptoms Respiratory: No Symptoms Cardiac: No Symptoms Musculoskeletal: Injury Skin: Skin Lesions Neurological: No Symptoms Endocrine: No Symptoms - Past Medical History Pertinent Past Medical History: Yes Neurological History: No Pertinent History ENT History: No Pertinent History Cardiac History: No Pertinent History Respiratory History: Sleep Apnea Endocrine Medical History: No Pertinent History Musculoskeletal History: No Pertinent History GI Medical History: GERD History: No Pertinent History Psycho-Social History: No Pertinent History Male Reproductive Disorders: No Pertinent History Other Medical History: DVT right leg - Past Surgical History Past Surgical History: Yes Neuro Surgical History: No Pertinent History Cardiac: No Pertinent History Respiratory: No Pertinent History Gastrointestinal: Hernia Repair Genitourinary: No Pertinent History Musculoskeletal: Orthopedic Surgery Male Surgical History: No Pertinent History Other Surgical History: LUNG SURG,CYST ON WRIST REMOVED, - Social History Smoking Status: Never smoker Exposure to second hand smoke: No Drug Use: none Patient Lives Alone: No - Social Determinants of Health Will the patient participate in the screening: Yes Do you worry about a steady place to live?: No Do you have any problems with any of the following?: No known problems In the past 12 months,have you had to go without utilities?: No Transportation Issues: No Has anyone in your support network made you feel unsafe?: No Have you or anyone in your house had to go without enough: No - Nursing Vital Signs Nursing Vital Signs: Initial Vital Signs Temperature 98 F 09/08/23 09:12 Pulse Rate 58 L 09/08/23 09:12 Respiratory Rate 18 09/08/23 09:12 Blood Pressure 158/76 09/08/23 09:12 O2 Sat by Pulse Oximetry 98 09/08/23 09:12 Pain Scale Pain Intensity 3 - Physical Exam General Appearance: no apparent distress Neck Exam: normal inspection, full range of motion Cardiovascular/Respiratory Exam: normal breath sounds, regular rate/rhythm Wrist Exam: normal ROM, soft tissue tenderness (3 cm laceration left wrist medial aspect with no active spurting or oozing. No exposed tendon.), No bone tenderness Hand Exam: normal inspection, non-tender, no evidence of injury, normal ROM Neuro/Tendon Exam: normal sensation, normal motor functions, normal tendon functions Mental Status Exam: alert, oriented x 3, cooperative Skin Exam: normal color SpO2 Interpretation: normal SpO2: 98 O2 Delivery: Room Air Procedures - Laceration/Wound Repair Left Wrist Time of Procedure: 09:35 Wound Location: Left, wrist Wound Length (cm): 3 Wound's Depth, Shape: superficial, linear Wound Explored: clean Irrigated: Yes Hibiclens Prep: Yes Anesthesia: 1% Lidocaine Volume Anesthetic (ccs): 3 Wound Repaired With: sutures Suture Size/Type: 4-0 Number of Sutures: 6 Layer Closure?: No Sterile Dressing Applied?: Yes Splint Applied?: Yes Type of Splint Applied: Premade Velcro Ordered Tests: Medication Summary Discontinued Medications Generic Name Dose Route Start Last Admin Trade Name Freq PRN Reason Stop Dose Admin Diphtheria/Tetanus/Acell Pertussis 0.5 ml 09/08/23 09:33 09/08/23 09:35 Tdap --Diph,Pertuss(Acell),Tet Vac/Pf 0.5 Ml Vial IM 09/08/23 09:34 0.5 ml .ONCE ONE Administration Diphtheria/Tetanus/Acell Pertussis Confirm 09/08/23 09:34 Tdap --Diph,Pertuss(Acell),Tet Vac/Pf 0.5 Ml Vial Administered 09/08/23 09:35 Dose 0.5 ml IM .STK-MED ONE Lidocaine HCl 3 ml 09/08/23 09:32 09/08/23 09:35 Lidocaine Hcl 1% 20 Ml Mdv 20 Ml Ml IJ 09/08/23 09:33 3 ml STAT ONE Administration Lidocaine HCl Confirm 09/08/23 09:34 Lidocaine Hcl 1% 20 Ml Mdv 20 Ml Ml Administered 09/08/23 09:35 Dose 3 ml .ROUTE .STK-MED ONE - Progress Progress: improved Progress Note: 09/08/23 09:53 72-year-old right-handed dominant male is evaluated for left wrist laceration. Tetanus is updated. Patient has intact distal neurovascular. Laceration is repaired. Placed in Velcro splint. Recommended taking Tylenol ibuprofen and outpatient follow-up. Superficial injuries, no bony tenderness, do not think needs imaging. 09/08/23 09:53 Counseled pt/family regarding: diagnosis, need for follow-up Medical Desision Making - Diagnostic Testing Diagnostic test were ordered, analyzed, and reviewed by me: No - Risk of complications The pt has a mod risk of morbidity or mortality based on: Need for minor surgical intervention in patient with know risk factors - Departure Departure Disposition: Home Clinical Impression: Laceration of wrist, left Condition: Stable Critical Care Time: No Referrals: ARLIN WALDROP [Primary Care Provider] - Follow up with PCP 1 day Instructions: Laceration Repair With Stitches (DC) Additional Instructions: Take Tylenol/ibuprofen as needed for pain. Avoid exertional activities. Follow-up with primary care for reevaluation. Suture removal in 10 to 14 days. Return to ER for increasing pain swelling, difficulty movements at fingers/wrist etc.
== END 2023-09-08 10:07 | disposition home or self-care (01) ==
LOC: ED 08:59
DX: S61.512A Laceration without foreign body of left wrist, initial encounter (principal); W29.8XXA Contact with other powered hand tools and household machinery, initial encounter; Y99.0 Civilian activity done for income or pay; Z23 Encounter for immunization
CPT/HCPCS: 12002; 90471; 90715; 96372; 99283; L3908; A9270-GY